=== PATIENT | female | born 1955 | race American Indian/Alaskan Native ===

== ENCOUNTER → 2023-03-07 | Outpatient (CLI) | payer OTHER ==
[~2023-03-07] MED LIST: AMITRIPTYLINE; AMLO5 PO; BENICAR; CLON1 PO; DULO60 PO; FISH1000 PO; GABAPENTIN; MULTIVITAMINS; NORVASC; OLME20-12. PO; PERM5TC TOP
== END ==
LOC: LAB 16:26 → LAB SHORT 16:26
DX: L08.0 Pyoderma (principal)
CPT/HCPCS: 87070; 87205

== ENCOUNTER → 2023-06-21 | Outpatient (CLI) | payer OTHER ==
[2023-07-03 21:53] LABS: HPV GENOTYPE 16 BY PCR Negative; HPV GENOTYPE 18 BY PCR Negative; HPV SOURCE Cervical; HPV, OTHER HIGH RISK BY PCR Positive
== END ==
LOC: LAB SHORT 17:56 → LAB 17:56
PROVIDERS: Internal Medicine
DX: Z00.00 Encounter for general adult medical examination without abnormal findings (principal)
CPT/HCPCS: 87624; 88142

== ENCOUNTER 2023-10-09 09:19 | Day surgery (SDC) | payer OTHER ==
[~2023-10-09] VITALS: Ht 162.6 cm; Wt 83.3 kg
[2023-10-09] VITALS (20 sets, daily range): BP systolic 93–141; BP diastolic 62–80
[~2023-10-09 09:19] MED LIST changes: +AMLO10 PO; +ASCORBIC ACID500 MG PO; +ASPI81CH PO; +Budeprion Xl300 MG PO; +CALCIUM-MAGNES1 EAC9 PO; +COQ-10100 MG PO; +CYCL10 PO; +GLUCHON PO; +LOSA50 PO; +QUDEXY PO; +TURMERIC500 M2 PO; +VITAMIN D310 MC4 PO; +Voltaren100 GM TOP; +ZOLOFT100 M1 PO
[2023-10-09] MEDS ORDERED: OxyCODONE HCL 10 MG TABCR PO SCH (10:00)
[2023-10-09] MEDS ORDERED: CeFAZolin Sodium 2,000 MG in NS 100 ML IV SCH ×2 (10:00→21:00)
[2023-10-09] MEDS ORDERED: Chlorhexidine Mouth Care 15 ML UDC MT SCH (10:00)
[2023-10-09] MEDS ORDERED: Ropivacaine 0.5% HCl/Pf 123.125 MG,EPINEPHrine HCL 0.25 MG,Ketorolac Tromethamine 15 MG... INFIL SCH (10:00)
[2023-10-09] MEDS ORDERED: Lactated Ringer's 1,000 ML IV SCH ×2 (10:00→12:20)
[2023-10-09] MEDS ORDERED: Acetaminophen 500 MG Tab PO SCH ×2 (10:00→16:00)
[2023-10-09] MEDS ORDERED: Tranexamic Acid 100 ML IV SCH (10:18)
[2023-10-09] MEDS ORDERED: FentaNYL Citrate 50 MCG/ML 2 ML Injection ONE (11:26)
[2023-10-09] MEDS ORDERED: propofoL 60 ML IV ONE (11:26)
[2023-10-09] MEDS ORDERED: Ondansetron HCl 2 MG / ML 2ML Vial ONE (11:27)
[2023-10-09] MEDS ORDERED: Dexamethasone Sod Phos 10 MG/ML 1ML VIAL ONE (11:27)
[2023-10-09] MEDS ORDERED: Ondansetron HCl 2 MG / ML 2ML Vial IV PRN (12:15)
[2023-10-09] MEDS ORDERED: Promethazine HCl 25 MG Tab PO PRN (12:15)
[2023-10-09] MEDS ORDERED: HYDROmorphone HCl/Pf 1MG SYR IV PRN (12:20)
[2023-10-09] MEDS ORDERED: Metoclopramide HCl 5MG / ML 2ML Vial IV PRN (12:20)
[2023-10-09] MEDS ORDERED: Magnesium Hydroxide Conc 10 ML UDC PO PRN (12:20)
[2023-10-09] MEDS ORDERED: HYDROcodone 5-APAP 325 TAB PO PRN (12:20)
[2023-10-09] MEDS ORDERED: DiphenhydrAMINE HCL 25 MG Cap PO PRN (12:25)
[2023-10-09] MEDS ORDERED: Bisacodyl 10 MG Supp PR PRN (12:25)
[2023-10-09] MEDS ORDERED: ePHEDrine Sulfate 50 MG/ML 1ML Injection ONE (13:52)
[2023-10-09] MEDS ORDERED: Phenylephrine HCl 100 MCG/ML-NS 10MLSYR (1MG/10ML) ONE (14:14)
[2023-10-09] MEDS ORDERED: Glycopyrrolate 0.2 MG/ML 5ML VIAL ONE (15:00)
[2023-10-09] MEDS ORDERED: Midazolam HCl 1MG / ML 2ML Vial ONE (15:01)
[2023-10-09] MEDS ORDERED: Ketorolac Tromethamine 30mg Vial ONE (15:20)
--- NOTE | 2023-10-09 16:51 | NUR ---
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
[2023-10-09] MEDS ORDERED: Ketorolac Tromethamine 15mg Vial IV SCH (18:00)
[2023-10-09] MEDS ORDERED: Topiramate 25 MG Tab PO SCH (21:00)
[2023-10-09] MEDS ORDERED: Docusate Sodium 100 MG Cap PO SCH (21:00)
[2023-10-10 04:30] VITALS: BP 128/70
--- NOTE | 2023-10-10 05:15 | NUR ---
SHIFT SUMMARY POD 1 L TKA PT RESTED T/O SHIFT. PAIN MANAGED PER EMAR. PT ABLE TO AMBULATE TO THE BR, 1 PERS ASST, WALKER AND GAIT BELT. TOLERATING PO INTAKE, VOIDING. MARGARITO BRENDAN AQUACEL TO L KNEE C/D/I. PLAN TO WORK WITH PHYSICAL THERAPY AND THE D/C HOME. NO OTHER CONCERNS AT THIS TIME, CALL LIGHT WITHIN REACH
[2023-10-10 05:34] LABS: BASOPHILS ABSOLUTE AUTO 0.03 K/mm3 (0.00-0.23); BASOPHILS PERCENT AUTO 0 % (0-2); EOSINOPHILS PERCENT AUTO 0 % (0-6); Hematocrit 39.6 % (33.0-51.0); Hemoglobin 12.6 g/dL (11.5-16.0); IMMATURE GRAN ABSOLUTE AUTO 0.04 K/mm3 (0.00-0.10); IMMATURE GRAN PERCENT AUTO 0 % (0-1); LYMPHOCYTES ABSOLUTE AUTO 0.95 K/mm3 (0.84-5.20); LYMPHOCYTES PERCENT AUTO 7 % (21-46); MONOCYTES ABSOLUTE AUTO 0.53 K/mm3 (0.16-1.47); MONOCYTES PERCENT AUTO 4 % (4-13); Mean Corpuscular HGB 28.9 pg (26.0-34.0); Mean Corpuscular HGB Conc 31.8 g/dL (31.5-36.5); Mean Corpuscular Volume 91 fL (80-100); Mean Platelet Volume 9.1 fL (9.1-12.4); NEUTROPHILS ABSOLUTE AUTO 11.51 K/mm3 (1.96-9.15); NEUTROPHILS PERCENT AUTO 88 % (41-73); Platelet Count 352 K/mm3 (150-400); RDW Coefficient Variation 14.2 % (11.7-14.2); RDW Standard Deviation 47.8 fL (35.1-46.3); Red Blood Cell Count 4.36 M/mm3 (3.80-5.20); White Blood Cell Count 13.06 K/mm3 (4.00-11.30)
[2023-10-10 06:07] LABS: Bun/Creatinine Ratio 20.8 (12.0-20.0); Calcium, Blood 8.8 mg/dL (8.5-10.1); Creatinine, Blood 0.82 mg/dL (0.40-1.00); Potassium, Blood 4.4 mmol/L (3.5-5.5)
[2023-10-10 07:09] VITALS: BP 139/71
[2023-10-10] MEDS ORDERED: Topiramate 25 MG Tab PO SCH (09:00)
[2023-10-10] MEDS ORDERED: Cholecalciferol 400 unit Tab PO SCH (09:00)
[2023-10-10] MEDS ORDERED: AmLODIPine Besylate 5 MG Tab PO SCH (09:00)
[2023-10-10] MEDS ORDERED: Losartan Potassium 50 MG Tab PO SCH (09:00)
[2023-10-10] MEDS ORDERED: buPROPion HCL 150 MG TAB.SR.12H PO SCH (09:00)
[2023-10-10] MEDS ORDERED: Aspirin 81 MG Chew PO SCH (09:00)
[2023-10-10] MEDS ORDERED: Ascorbic Acid 500 MG Tab PO SCH (09:00)
[2023-10-10] MEDS ORDERED: CO ENZYME Q10 PO SCH (09:00)
[2023-10-10] MEDS ORDERED: Sertraline HCl 100 MG Tab PO SCH (09:00)
[2023-10-10] MEDS ORDERED: TRACE MINERALS PO SCH (09:00)
--- NOTE | 2023-10-10 10:40 | NUR ---
DISCHARGE PT HAS CLEARED THERAPY. PAIN WELL CONTROLLED. EATING, DRINKING, & VOIDING WELL. TITA & ROOPA PACK SENT w/ PT. ESCORTED OUT VIA W/C.
== END 2023-10-10 10:40 | disposition home or self-care (01) ==
LOC: ORSCMMR 09:19 → ORD 11:00 → ORSCMMR 11:00 → SURS 16:43 → ORSCMMR 10-10 10:40
PROVIDERS: Orthopaedic Surgery
PROC: 0SRD0J9 Replacement of Left Knee Joint with Synthetic Substitute, Cemented, Open Approach (ICD-10-PCS; principal; 2023-10-09 11:00)
DX: M17.12 Unilateral primary osteoarthritis, left knee (principal); Z87.891 Personal history of nicotine dependence; Z79.899 Other long term (current) drug therapy; I10 Essential (primary) hypertension; Z79.82 Long term (current) use of aspirin
CPT/HCPCS: 36415; 73560-LT; 80048; 85025; 97110; 97161; 97530; A9270; C1713; C1776; J0171; J0690; J0735; J1100; J1885; J2250; J2371; J2405; J2704; J2795; J3010; J7120

== ENCOUNTER → 2024-07-10 | Outpatient (CLI) | payer OTHER ==
[2024-07-22 08:15] LABS: HPV GENOTYPE 16 BY TMA Not Detected; HPV GENOTYPE 18/45 BY TMA Not Detected; HPV HIGH RISK BY TMA Detected; HPV SOURCE Cervical; HPVG SOURCE Cervical
== END ==
LOC: LAB SHORT 17:00 → LAB 17:00
PROVIDERS: Internal Medicine
DX: R87.810 Cervical high risk human papillomavirus (HPV) DNA test positive (principal); R87.629 Unspecified abnormal cytological findings in specimens from vagina; B97.7 Papillomavirus as the cause of diseases classified elsewhere; Z72.51 High risk heterosexual behavior
CPT/HCPCS: 87624; 87625; G0123

== ENCOUNTER → 2025-03-25 | Outpatient (CLI) | payer OTHER ==
[2025-03-30 17:54] LABS: OVA AND PARASITE,FECAL INTERP Negative (Negative)
== END ==
LOC: LAB 13:00 → LAB SHORT 13:00
PROVIDERS: Internal Medicine
DX: R19.7 Diarrhea, unspecified (principal)
CPT/HCPCS: 87177; 87209